=== PATIENT | male | born 2000 | race Caucasian/White ===

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

== ENCOUNTER 2021-09-27 05:50 | Emergency (ER) | payer SELFPAY ==
[~2021-09-27] VITALS: Ht 182.9 cm; Wt 63.5 kg
== END 2021-09-27 06:32 | disposition left against medical advice (07) ==
LOC: ER 05:50
DX: R10.9 Unspecified abdominal pain (principal); R11.2 Nausea with vomiting, unspecified; F17.210 Nicotine dependence, cigarettes, uncomplicated
CPT/HCPCS: 99283

== ENCOUNTER 2022-03-04 21:33 | Emergency (ER) | payer SELFPAY ==
[~2022-03-04] VITALS: Ht 182.9 cm; Wt 68.0 kg
[2022-03-04] MEDS ORDERED: Amoxicillin500 M1 PO (23:04)
== END 2022-03-04 23:13 | disposition home or self-care (01) ==
LOC: ER 21:33
DX: J02.0 Streptococcal pharyngitis (principal); F17.210 Nicotine dependence, cigarettes, uncomplicated
CPT/HCPCS: 87430; A9270

== ENCOUNTER 2022-06-27 16:44 | Emergency (ER) | payer SELFPAY ==
[~2022-06-27] VITALS: Ht 180.3 cm; Wt 68.0 kg
[~2022-06-27 16:44] MED LIST changes: +Amoxicillin500 M1 PO
[2022-06-27 17:56] LABS: Influenza A, PCR NEGATIVE (NEGATIVE); Influenza B, PCR NEGATIVE (NEGATIVE); Resp Syncytial Virus, PCR NEGATIVE (NEGATIVE); SARS-Cov-2 (COVID-19) PCR, MMC NEGATIVE (NEGATIVE)
[2022-06-27] MEDS ORDERED: LIDO700A20 TOP (18:40)
[2022-06-27] MEDS ORDERED: ONDA4ODT MM (18:40)
== END 2022-06-27 18:55 | disposition home or self-care (01) ==
LOC: ER 16:44
PROVIDERS: Student in an Organized Health Care Education/Training Program
DX: R11.2 Nausea with vomiting, unspecified (principal); M54.50 Low back pain, unspecified; F17.210 Nicotine dependence, cigarettes, uncomplicated; Z20.822 Contact with and (suspected) exposure to COVID-19
CPT/HCPCS: 0241U; 96372; 99283; A9270; J1885

== ENCOUNTER 2022-07-25 23:35 | Emergency (ER) | payer SELFPAY ==
[~2022-07-25] VITALS: Ht 180.3 cm; Wt 68.0 kg
[~2022-07-25 23:35] MED LIST changes: +LIDO700A20 TOP
[2022-07-25] MEDS ORDERED: AMOCLA875 PO (23:53)
== END 2022-07-26 00:02 | disposition home or self-care (01) ==
LOC: ER 23:35
DX: K02.9 Dental caries, unspecified (principal); F17.210 Nicotine dependence, cigarettes, uncomplicated
CPT/HCPCS: 99282; A9270

== ENCOUNTER 2022-12-02 03:21 | Emergency (ER) | payer OTHER ==
[~2022-12-02] VITALS: Ht 182.9 cm; Wt 68.0 kg
[~2022-12-02 03:21] MED LIST changes: +AMOCLA875 PO
[2022-12-02 03:38] VITALS: BP 132/86
[2022-12-02] MEDS ORDERED: AMOCLA875 PO (04:02)
== END 2022-12-02 04:15 | disposition home or self-care (01) ==
LOC: ER 03:21
DX: K02.9 Dental caries, unspecified (principal); F17.210 Nicotine dependence, cigarettes, uncomplicated
CPT/HCPCS: 99282; A9270

== ENCOUNTER 2025-03-16 23:44 | Emergency (ER) | payer SELFPAY ==
[~2025-03-16] VITALS: Ht 182.9 cm; Wt 65.8 kg
[2025-03-16 23:54] VITALS: BP 152/87
== END 2025-03-17 00:23 | disposition home or self-care (01) ==
LOC: ER 23:44
DX: L23.7 Allergic contact dermatitis due to plants, except food (principal); F17.210 Nicotine dependence, cigarettes, uncomplicated; Z59.82 Transportation insecurity
CPT/HCPCS: 99282; A9270; J7512